=== PATIENT | male | born 1960 | race Caucasian/White ===

== ENCOUNTER → 2019-04-09 | Outpatient (CLI) | payer OTHER ==
--- NOTE | 2019-04-09 09:53 | 2DMMODE ---
[place] [address] 2 D/M-MODE ECHOCARDIOGRAM Name: NAY MARINELLI Room: [facility]#: [id number] Admission: 04/09/19 Attend Phys: Margarito Fisher MD Discharge: Date of : 62 Date of Service: 04/09/19 0952 Report #: [id number] THIS REPORT FOR: cc: FAM - Family physician unknown FAM - Family physician unknown Margarito Grajeda MD [facility] ~ APPROVED REPORT Study performed: 04/09/2019 08:51:12 EXAM: Comprehensive 2D, Doppler, and color-flow Echocardiogram BSA: 2.07 HR: 52 bpm BP: 110/80 mmHg Other Information Study Quality: Fair Indications CAD 2D Dimensions IVSd: 9.70 (7-11mm) LVOT Diam: 20.47 (18-24mm) LVDd: 44.96 mm PWd: 11.39 (7-11mm) Ascending Ao: 27.75 (22-36mm) LVDs: 29.81 (25-40mm) Aortic Root: 33.29 mm Volumes Left Atrial Volume (Systole) LA ESV Index: 23.70 mL/m2 Aortic Valve AoV Peak Thierry.: 1.35 m/s AO Peak Gr.: 7.32 mmHg LVOT Max P.93 mmHg AO Mean Gr.: 4.06 mmHg LVOT Mean P.75 mmHg LVOT Max V: 1.22 m/s AO V2 VTI: 27.69 cm LVOT Mean V: 0.75 m/s DEBRA (VTI): 3.09 cm2 LVOT V1 VTI: 26.01 cm Mitral Valve E/A Ratio: 2.16 MV Decel. Time: 203.05 [place] [address] 2 D/M-MODE ECHOCARDIOGRAM Name: NAY MARINELLI Room: [facility]#: [id number] Admission: 04/09/19 Attend Phys: Margarito Fisher MD Discharge: Date of : 62 Date of Service: 04/09/19 0952 Report #: [id number] MV E Max Thierry.: 0.87 m/s MV PHT: 58.88 ms MVA (PHT): 3.74 cm2 TDI E/Lateral E': 5.44 E/Medial E': 6.69 Medial E' Thierry.: 0.13 m/s Lateral E' Thierry.: 0.16 m/s Pulmonary Valve PV Peak Thierry.: 0.94 m/s PV Peak Gr.: 3.57 mmHg Left Ventricle The left ventricle is normal size. There is normal LV segmental wall motion. There is normal left ventricular wall thickness. Left ventricular systolic function is normal. The left ventricular ejection fraction is within the normal range. LVEF is 60%. The left ventricular diastolic function is normal. Right Ventricle The right ventricle is normal size. The right ventricular systolic function is normal. Atria The left atrium size is normal. The right atrium size is normal. Aortic Valve The aortic valve is normal in structure. No aortic regurgitation is present. There is no aortic valvular stenosis. Mitral Valve The mitral valve is normal in structure. There is no mitral valve regurgitation noted. No evidence of mitral valve stenosis. Tricuspid Valve The tricuspid valve is normal in structure. There is no tricuspid valve regurgitation noted. Pulmonic Valve The pulmonary valve is normal in structure. There is no pulmonic valvular regurgitation. Great Vessels The aortic root is normal in size. IVC is normal in size and collapses >50% [place] [address] 2 D/M-MODE ECHOCARDIOGRAM Name: NAY MARINELLI Room: [facility]#: [id number] Admission: 04/09/19 Attend Phys: Margarito Fisher MD Discharge: Date of : 62 Date of Service: 04/09/19 0952 Report #: [id number] Pericardium There is no pericardial effusion. <Conclusion> The left ventricle is normal size. There is normal left ventricular wall thickness. Left ventricular systolic function is normal. The left ventricular ejection fraction is within the normal range. LVEF is 60%. The left ventricular diastolic function is normal. The right ventricle is normal size. The left atrium size is normal. The right atrium size is normal. The aortic valve is normal in structure. The mitral valve is normal in structure. The tricuspid valve is normal in structure. There is no pericardial effusion. There is normal LV segmental wall motion. <ELECTRONICALLY SIGNED> By: Margarito Grajeda MD, FACC 04/09/19 0952 1 1 Margarito Grajeda MD, FACC /INF
== END ==
LOC: M.CRD 02-12 09:00
DX: I25.119 Atherosclerotic heart disease of native coronary artery with unspecified angina pectoris (principal)